=== PATIENT | female | born 1975 | race African-American/Black ===

== ENCOUNTER 2019-12-11 13:04 | Emergency (ER) | payer MEDICAID ==
[~2019-12-11] VITALS: Ht 165.1 cm; Wt 85.7 kg
[2019-12-11 15:00] VITALS: BP 132/84
== END 2019-12-11 15:37 | disposition home or self-care (01) ==
LOC: ER 13:04
DX: R51 Headache (principal); R09.89 Other specified symptoms and signs involving the circulatory and respiratory systems; F17.210 Nicotine dependence, cigarettes, uncomplicated; Z77.120 Contact with and (suspected) exposure to mold (toxic)
CPT/HCPCS: 71046